=== PATIENT | female | born 1960 | race Caucasian/White ===

== ENCOUNTER → 2017-08-25 | Outpatient (CLI) | payer OTHER | END | disposition home or self-care (01) | LOC: KCIC CT 12:00 | DX: E04.2 Nontoxic multinodular goiter (principal); K44.9 Diaphragmatic hernia without obstruction or gangrene; M41.85 Other forms of scoliosis, thoracolumbar region; J84.10 Pulmonary fibrosis, unspecified; J98.11 Atelectasis; Z87.891 Personal history of nicotine dependence | CPT/HCPCS: 71250 ==

== ENCOUNTER → 2017-09-05 | Day surgery (SDC) | payer OTHER ==
[~2017-09-05] MED LIST: HYDROmorphone 2 MG/ML VIAL IV; LIDOCAINE 1% PF 2 ML VIAL. ID; LIDOCAINE 2% 100 MG/5 ML SYRINGE.; MORPHINE SULFATE 4 MG/ML DISP.SYRIN. IV; ONDANSETRON PF 4 MG/2 ML VIAL. IV; PROCHLORPERAZINE 10 MG/2 ML VIAL. IV; PROPOFOL 40 ML IV; fentaNYL PF VIAL 100 MCG/2 ML VIAL IV
[2017-09-05] MEDS: IV RINGERS,LACTATED 1000ML 1,000 ML IV (15:26)
== END | disposition home or self-care (01) ==
LOC: ENDOS 15:00
DX: Z12.11 Encounter for screening for malignant neoplasm of colon (principal); K57.30 Diverticulosis of large intestine without perforation or abscess without bleeding; K64.0 First degree hemorrhoids; I10 Essential (primary) hypertension; E78.5 Hyperlipidemia, unspecified; Z82.49 Family history of ischemic heart disease and other diseases of the circulatory system; Z82.3 Family history of stroke; Z80.3 Family history of malignant neoplasm of breast; Z72.89 Other problems related to lifestyle; Z87.891 Personal history of nicotine dependence
CPT/HCPCS: 45378; J2704

== ENCOUNTER → 2017-10-02 | Outpatient (CLI) | payer OTHER | END | disposition home or self-care (01) | LOC: KCIC US 08:10 | DX: E04.2 Nontoxic multinodular goiter (principal); K76.89 Other specified diseases of liver; J98.11 Atelectasis; E78.5 Hyperlipidemia, unspecified; R16.0 Hepatomegaly, not elsewhere classified; Z87.891 Personal history of nicotine dependence | CPT/HCPCS: 76536; 76700 ==

== ENCOUNTER → 2017-11-30 | Outpatient (CLI) | payer OTHER ==
[2017-11-30] MEDS: GADOBUTROL 10 MMOL/10 ML VIAL IV (09:09)
== END | disposition home or self-care (01) ==
LOC: KCIC MRI 08:32
DX: K76.89 Other specified diseases of liver (principal)
CPT/HCPCS: 74183; A9585

== ENCOUNTER → 2017-12-06 | Outpatient (CLI) | payer OTHER | END | disposition home or self-care (01) | LOC: US 08:38 | DX: E04.1 Nontoxic single thyroid nodule (principal); E78.00 Pure hypercholesterolemia, unspecified; I10 Essential (primary) hypertension; J44.9 Chronic obstructive pulmonary disease, unspecified; K21.9 Gastro-esophageal reflux disease without esophagitis; F41.9 Anxiety disorder, unspecified; F32.9 Major depressive disorder, single episode, unspecified; Z72.89 Other problems related to lifestyle; F17.200 Nicotine dependence, unspecified, uncomplicated; Z98.890 Other specified postprocedural states | CPT/HCPCS: 10022; 60300; 76942; 88173 ==

== ENCOUNTER → 2018-01-05 | Outpatient (CLI) | payer OTHER | END | disposition home or self-care (01) | LOC: KCIC US 14:32 | DX: E04.1 Nontoxic single thyroid nodule (principal); I10 Essential (primary) hypertension; E78.5 Hyperlipidemia, unspecified; E78.00 Pure hypercholesterolemia, unspecified; J44.9 Chronic obstructive pulmonary disease, unspecified; K21.9 Gastro-esophageal reflux disease without esophagitis; Z87.891 Personal history of nicotine dependence | CPT/HCPCS: 76536 ==

== ENCOUNTER 2018-11-19 01:25 | Emergency (ER) | payer OTHER, SELFPAY ==
[~2018-11-19] VITALS: Ht 165.1 cm; Wt 77.1 kg
[~2018-11-19 01:25] MED LIST changes: +ATOR20TA58 PO; +CITA20TA6 PO; +CITA40TA5 PO; +FAMO40TA4 PO; -HYDROmorphone 2 MG/ML VIAL IV; -LIDOCAINE 1% PF 2 ML VIAL. ID; -LIDOCAINE 2% 100 MG/5 ML SYRINGE.; +LISI1TAB7 PO; -MORPHINE SULFATE 4 MG/ML DISP.SYRIN. IV; -ONDANSETRON PF 4 MG/2 ML VIAL. IV; +PANT20TA2 PO; -PROCHLORPERAZINE 10 MG/2 ML VIAL. IV; -PROPOFOL 40 ML IV; +TRAZ-118 PO; -fentaNYL PF VIAL 100 MCG/2 ML VIAL IV
[2018-11-19 01:38] VITALS: BP 145/68
--- NOTE | 2018-11-19 02:00 | PHYS DOC ---
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 Patient has maculopapular rash on hands, axillary, forearm and legs after being exposed to poison obi 2 days ago. Denies airway involvement, shortness of breath or wheezing. No other symptoms or complaints. Patient has used [id number] treatments without remedy. ] Review of Systems Review of Systems Review symptoms as per history of present illness. All other review symptoms are negative. All other systems were reviewed and found to be within normal limits, except as documented in this note. Current Medications Current Medications Current Medications Medications (Trade) Dose Ordered Sig/Ibrahima Start Time Stop Time Status Last Admin Dose Admin Hydroxyzine Pamoate (Vistaril) 25 mg 1X ONCE 11/19/18 02:30 11/19/18 02:31 Prednisone (Prednisone) 50 mg 1X ONCE 11/19/18 02:30 11/19/18 02:31 Allergies Allergies Allergies Coded Allergies Type Severity Reaction Last Updated Verified No Known Drug Allergies 09/05/17 No Physical Exam Physical Exam Constitutional: Well developed, well nourished, no acute distress, non-toxic appearance. [] HENT: Normocephalic, atraumatic, bilateral external ears normal, oropharynx moist, no oral exudates, nose normal. [] Eyes: PERRLA, EOMI, conjunctiva normal, no discharge. [] Skin: Red raised, macular papular rash involving axilla, forearm and neck. [] Back: No tenderness, no CVA tenderness. [] Extremities: No tenderness, no cyanosis, no clubbing, ROM intact, no edema. [] Neurologic: Alert and oriented X 3, normal motor function, normal sensory function, no focal deficits noted. [] Psychologic: Affect normal, judgement normal, mood normal. [] Current Patient Data Vital Signs Vital Signs Date Time Temp Pulse Resp B/P (MAP) Pulse Ox O2 Delivery O2 Flow Rate FiO2 11/19/18 01:38 97.6 90 16 145/68 (93) 97 Room Air 97.6 EKG EKG [] Radiology/Procedures Radiology/Procedures [] Course & Med Decision Making Course & Med Decision Making Pertinent Labs and Imaging studies reviewed. (See chart for details) [Will treat supportively with PCP follow-up.] Dragon Disclaimer Dragon Disclaimer This electronic medical record was generated, in whole or in part, using a voice recognition dictation system. Departure Departure Impression: Primary Impression: Plant dermatitis Disposition: HOME, SELF-CARE Condition: GOOD Referrals: NITO MEHTA MD (PCP) Scripts Prednisone (PREDNISONE) 20 Mg Tablet 1 TAB PO BID, #14 TAB Prov: MICHAEL BRYSON DO 11/19/18 Hydroxyzine Hcl (HYDROXYZINE HCL) 25 Mg Tablet 1 TAB PO TID, #30 TAB Prov: MICHAEL BRYSON DO 11/19/18 MICHAEL BRYSON DO November 19, 2018 02:00
[2018-11-19] MEDS ORDERED: HYDR25TA PO (02:12)
[2018-11-19] MEDS ORDERED: PRED20TA PO (02:12)
[2018-11-19] MEDS ORDERED: predniSONE 10 MG TABLET PO ONE (02:30)
[2018-11-19] MEDS ORDERED: hydrOXYzine PAMOATE 25 MG CAPSULE PO ONE (02:30)
== END 2018-11-19 02:20 | disposition home or self-care (01) ==
LOC: ER 01:25
DX: L23.7 Allergic contact dermatitis due to plants, except food (principal); E78.00 Pure hypercholesterolemia, unspecified; I10 Essential (primary) hypertension; Z90.710 Acquired absence of both cervix and uterus
CPT/HCPCS: 99283; J7512; Q0177

== ENCOUNTER → 2019-03-08 | Outpatient (CLI) | payer OTHER ==
[~2019-03-08] MED LIST changes: +HYDR25TA PO; +LISI1TAB20 PO; -LISI1TAB7 PO; +PRED20TA PO
--- NOTE | 2019-03-08 17:15 | RAD ---
Examination: US GUID NDL PLACE/ASPI/BX History: Left thyroid mass Comparison/Correlation: 10/02/2017 thyroid ultrasound exam Findings: Risks and benefits of left thyroid mass fine needle aspiration were discussed with the patient and informed consent was obtained. Preliminary ultrasound imaging was performed to determine needle placement site. The well-circumscribed dominant left thyroid gland mass especially noted at the interpolar to lower pole level has a measurement of 3 cm longitudinal by 1.9 cm x 1.7 cm. Flow within it and about this mass is noted on color Doppler imaging. Hypoechoic component is small in size of anterior aspect of this mass. Cleansing with ChloraPrep was utilized. Sterile drapes were placed. Medial approach utilized. Sterile gel and sterile probe cover is visualized. A total of 10 cc 1 percent lidocaine was administered along the expected needle course to the mass. A total of 7 fine-needle aspiration passes were made into this mass at multiple levels throughout including at the hypoechoic portion at the inferior aspect. Specimens were provided to the pathology department farm loan representative present at the time of the procedure. Adequate samples are reportedly provided. The patient tolerated procedure well without immediate complications. Impression: Successful fine-needle aspiration of the dominant left thyroid lobe mass. Electronically signed by: Andrew Yepez MD (03/08/2019 5:13 PM) [facility]
== END | disposition home or self-care (01) ==
LOC: US 11:48
PROVIDERS: ATTEND Family Medicine
DX: E04.1 Nontoxic single thyroid nodule (principal)
CPT/HCPCS: 10005; 76942; 88173; 88305

== ENCOUNTER → 2021-01-22 | Outpatient (CLI) | payer OTHER ==
--- NOTE | 2021-01-22 16:40 | RAD ---
US THYROID History: Reason: E04.1 / Spl. Instructions: / History: Thyroid nodules Comparison: Ultrasound January 05, 2018. Ultrasound-guided biopsy March 08, 2019 Technique: Multiple grayscale and color Doppler images of the thyroid gland were obtained. Findings: Right thyroid lobe: 4.2 x 1.9 x 1.7 cm. Homogeneous echotexture. Left thyroid lobe: 4.7 x 2.2 x 2.0 cm. Homogeneous echotexture. Isthmus: 0.2 cm. -Several right thyroid cysts. Right inferior thyroid mixed cystic and solid nodule measures 0.6 x 0.4 cm. TI-RADS 2. Similar compar ed to prior. Additional right inferior thyroid mixed cystic and solid nodule measures 0.9 x 0.7 cm. TI-RADS 2. Dec reased compared to prior. -Solid predominantly isoechoic left thyroid nodule measures 3.1 x 2.2 x 1.8 cm. Increased compared to prior (compared to 2.5 x 1.5 cm previously). TI-RADS 3. ACR Thyroid Imaging, Reporting And Data System (TI-RADS): White Paper Of The ACR TI-RADS Committee. J ournal of the [employer], volume 14, issue 5, pages 587-595 (October 2016). IMPRESSION: 1. Increased TI-RADS 3 left thyroid nodule. Reportedly previously biopsied. Recommend comparison wit h pathology report. Recommend follow-up. Electronically signed by: Alfonzo Posadas DO (01/22/2021 4:38 PM) [id number]
== END ==
LOC: US 15:44
PROVIDERS: ATTEND Physician Assistant Medical
DX: E04.2 Nontoxic multinodular goiter (principal)
CPT/HCPCS: 76536